=== PATIENT | female | born 1980 | race Caucasian/White ===

== ENCOUNTER → 2018-05-25 10:37 | Outpatient (REF) | payer BC, SELFPAY ==
[2018-05-25 19:41] LABS: HCT 35.5 % (36.0-46.0); HGB 12.1 g/dL (12.0-15.5); Mean Corp. HGB Concentration 34.1 g/dL (32.0-36.0); Mean Corpuscular Hemoglobin 33.5 pg (27.0-33.0); Mean Corpuscular Volume 98.3 fL (80-95); Mean Platelet Volume 10.7 fL (8.0-11.0); Platelet Count 161 x1000/uL (130-400); RBC 3.61 m/cumm (4.00-5.20); RBC Distribution Width 12.2 % (11.7-14.6); White Blood Cell Count 7.71 k/cumm (4.4-10.8)
[2018-05-25 19:48] LABS: Anion Gap 9.5 mmol/L (3-11); BUN 11 mg/dL (7-18); CO2 24.5 mmol/L (21.0-32.0); CREATININE 0.57 mg/dL (0.55-1.02); Calcium 7.9 mg/dL (8.5-10.1); Chloride 103 mmol/L (98-107); Glucose 88 mg/dL (70-100); Potassium 3.7 mmol/L (3.5-5.1); Sodium 137 mmol/L (136-145)
[2018-05-25 19:52] LABS: Iron 135 ug/dL (50-175)
[2018-05-25 20:39] LABS: Epithelial Cells Few HPF (Negative); Other Cells Few Renal (Negative); RBC Negative (0-2); WBC 0-2 HPF (0-5)
[2018-05-25 20:40] LABS: Bacteria Rare HPF (Negative); C & S Indicated? No; Casts Negative LPF (Negative); Crystals Negative HPF (Negative); Mucus Negative (Negative)
== END ==
LOC: NCHCN 10:37
PROVIDERS: PCP Nurse Practitioner Family; Visit Provider Physician Assistant Medical
DX: R06.02 Shortness of breath (principal); N39.0 Urinary tract infection, site not specified
CPT/HCPCS: 80048; 85027; 81015; 83540; 87086

== ENCOUNTER 2018-12-10 16:43 | Outpatient (REF) | payer BC, SELFPAY ==
[2018-12-10 19:41] LABS: Bilirubin Negative (Negative); Blood Negative (Negative); Clarity Clear; Glucose Negative (Negative); Ketones Negative (Negative); Leukocyte Esterase Negative (Negative); Nitrite Negative (Negative); Urobilinogen 0.2 EU/dL (Up TO 0.2); pH 6.5 (5-8)
== END 2018-12-10 17:03 ==
LOC: NCHCN 16:43
PROVIDERS: PCP Nurse Practitioner Family; Visit Provider Nurse Practitioner Family
DX: N89.8 Other specified noninflammatory disorders of vagina (principal); R30.0 Dysuria
CPT/HCPCS: 81003; 87480; 87510; 87660

== ENCOUNTER 2022-02-07 01:14 | Outpatient (CLI) | payer BC, SELFPAY ==
--- NOTE | 2022-02-07 | DI.RAD_ITS ---
Exam(s) XR SHOULDER LT COMPLETE 2+V EXAM: XR SHOULDER LT COMPLETE 2+V CLINICAL HISTORY: LT SHOULDER PAIN, M25.512. TECHNIQUE: 2D digital imaging was performed. COMPARISON: No exams were available for comparison FINDINGS: Five views There is no evidence of fracture or dislocation nor abnormal soft tissue calcifications. Subacromial space is not diminished but there is slight upward subluxation of the humeral head in the glenoid fo ssa. This may indicate an element of rotator cuff pathology despite absence of obvious degenerative change in the AC joint nor plain film impingement findings at the level of the acromion-lateral subac romial arch. Bone density is normal. There are no osseous lesions. IMPRESSION: As above. If clinically indicated follow-up MRI can be performed DATA REPOSITORY: RADIATION DOSE DELIVERED:
== END 2022-02-07 01:34 ==
PROVIDERS: PCP Nurse Practitioner Family; Visit Provider Naturopath
DX: M25.512 Pain in left shoulder (principal); S43.082A Other subluxation of left shoulder joint, initial encounter
CPT/HCPCS: 73030

== ENCOUNTER 2023-01-01 01:06 | Outpatient (CLI) | payer BC, SELFPAY ==
--- NOTE | 2023-01-01 | DI.RAD_ITS ---
Exam(s) XR CERVICAL SPINE COMP 4-5V EXAM: XR CERVICAL SPINE COMP 4-5V CLINICAL HISTORY: NECK PAIN WITH LT ARM RADICULOPATHY. TECHNIQUE: 2D digital imaging was performed. COMPARISON: No exams were available for comparison FINDINGS: BONES: No fracture or destructive lesion. Vertebral bodies are unremarkable. DISKS: Intervertebral disc spaces are maintained. No significant degenerative changes. ALIGNMENT: Cervical spinal alignment is within normal limits. The odontoid and atlantoaxial articulat ions are normal. SOFT TISSUE: Normal. The lung apices are clear. IMPRESSION: Unremarkable radiographs of the cervical spine. DATA REPOSITORY: RADIATION DOSE DELIVERED:
== END 2023-01-01 01:26 ==
PROVIDERS: PCP Nurse Practitioner Family; Visit Provider Naturopath
DX: M54.12 Radiculopathy, cervical region (principal); M54.2 Cervicalgia
CPT/HCPCS: 72050

== ENCOUNTER 2023-02-17 14:14 | Emergency (ER) | payer BC, SELFPAY ==
[2023-02-17 14:16] VITALS: BP 91/67; PULSE 67; RESP 15; TEMP 36.8; O2SAT 100
--- NOTE | 2023-02-17 14:32 | ED.GENADUL_ITS ---
Discharge Plan Disposition Patient Disposition: Home Condition: Improving Discharge Details Chief Complaint: Urinary Clinical Impression: Urinary retention Primary Care Provider: Katelyn Melton ED Provider: Luke Lemus Home Meds and New Rx's Prescriptions: No Action No Known Home Meds Discharge Instructions Instructions: Umaña Catheter Placement and Care (ED), Acute Urinary Retention in Women (ED) Additional Instructions: Please follow-up with your [facility] team or your primary care physician. If you have any issues please return to the emergency department for removal of your Umaña catheter. Medical Decision Making 42-year-old female 1 day postop from hysterectomy presents with urinary retent ion after taking out catheter this morning. Has not urinated since this AM. Has suprapubic fullness and pressure. High clinical suspicion for urinary retention. Lower suspicion for internal wound dehiscence/intra-abdominal/pelvic hemorrhaging. Will perform bladder scan. Will place Umaña catheter. Will reassess symptoms after Umaña catheter placement. Laparoscopy port sites clean dry intact no evidence of dehiscence. Patient is nonperitoneal afebrile nontoxic 3: 36 patient resting much more comfortably after Umaña catheter placed. Output of approximately 400 cc of urine. Patient to follow-up with primary care and [facility] team. If she has any issues she will return here for Umaña removal. HPI General Date/Time Provider Initiated Documentation: 02/17/23 14:21 . HPI Narrative: 42-year-old female 1 day postop hysterectomy, had urinary catheter in place, her [facility] team told her to remove her catheter at home this morning which she did she has not been able to urinate since this morning. Endorses lower abdominal distention pain Related Data Home Medications Medication Instructions Recorded Confirmed Unknown [No Known Home Meds] 02/17/23 02/17/23 Allergies Allergy/AdvReac Type Severity Reaction Status Date / Time No Known Allergies Allergy Unverified 02/17/23 14:21 General Stated Complaint: Urinary CHEKO: 4 Review of Systems Narrative: Review of Systems Constitutional: negative Eyes: negative ENT: negative Cardiovascular: negative Respiratory: negative Gastrointestinal: negative : Urinary retention Musculoskeletal: negative Skin: negative Neurologic: negative Psych: negative PFSH All Active Problems (Updated 02/17/23 @ 15:37 by Luke Lemus MD) Urinary retention (Acute) Social History Smoking/Tobacco Use Status: Never Smoking risk assessment performed?: Yes Alcohol Intake: never Drug use: Never Substance use type: does not use Exam Narrative Exam Narrative: Physical Examination General: alert, awake, cooperative, appears uncomfortable GI: Lower abdominal fullness without peritoneal signs, laparoscopy port sites clean dry intact no evidence of dehiscence Skin: Laparoscopy port sites clean dry intact no evidence of dehisced Course Vital Signs Vital signs: Vital Signs Temperature 36.8 C 02/17/23 14:16 Pulse 67 02/17/23 14:16 Respiratory Rate 15 02/17/23 14:16 Blood Pressure 91/67 L 02/17/23 14:16 Pulse Oximetry 100 02/17/23 14:16 Temperature 36.8 C 02/17/23 14:16 Temperature Source Temporal Artery Scan 02/17/23 14:16 Pulse 67 02/17/23 14:16 Respiratory Rate 15 02/17/23 14:16 Respiratory Effort Normal 02/17/23 14:20 Blood Pressure 91/67 L 02/17/23 14:16 Blood Pressure Position Sitting 02/17/23 14:16 Pulse Oximetry 100 02/17/23 14:16 Oxygen Delivery Method Room Air 02/17/23 14:16 Oxygen Flow Rate 0 02/17/23 14:16 Pain Level 10 02/17/23 14:16
[2023-02-17 15:54] VITALS: BP 113/68; PULSE 73; RESP 16; TEMP 36.6; O2SAT 100
== END 2023-02-17 15:56 | disposition home or self-care (01) ==
PROVIDERS: Emergency Provider Emergency Medicine; PCP Naturopath
DX: R33.9 Retention of urine, unspecified (principal); Z90.710 Acquired absence of both cervix and uterus
CPT/HCPCS: 51702; 99284

== ENCOUNTER 2023-02-19 08:30 | Emergency (ER) | payer BC, SELFPAY ==
[2023-02-19 08:34] VITALS: BP 108/75; PULSE 72; RESP 18; TEMP 37.3; O2SAT 100
--- NOTE | 2023-02-19 08:55 | W.ED.GENAD ---
Discharge Plan Disposition Patient Disposition: Home Condition: Stable Discharge Details Clinical Impression: Encounter for Ramos catheter removal Primary Care Provider: Katelyn Melton ED Provider: Morro Myrick Home Meds and New Rx's Prescriptions: No Action No Known Home Meds Discharge Instructions Additional Instructions: follow up with your obgyn provider as scheduled if you develop inability to urinate, severe abdominal pain or feel more ill return to the emergency department Medical Decision Making 42 yo female who underwent hysterectomy that was reportedly uncomplicated per patient this past Thursday in [facility], had a ramos during the procedure and was removed. She was d/c'd the same day but developed urinary retention so was seen in the [facility] ED on 02/17 and had ramos placed. She has had some discomfort since in the suprapubic region and mild bleeding around the ramos so came here. She denies fevers, chills, has been draining urine that is clear. She has clear urine in her ramos bag now. She is in no distress without significant tenderness. She requests ramos removal and voiding trial, nursing will remove ramos pt voided without issue and denies any dysuria with urination. She is stable for d/c, advised to f/u with obgyn and return precautions given Differential Diagnosis Differential Diagnosis: urinary retention, ramos discomfort HPI General Mode of arrival: ambulatory. Date/Time Provider Initiated Documentation: 02/19/23 08:39. Limitations to Documentation: no limitations. Information obtained by: patient. History of Present Illness 42 year old F presents to the emergency department with the chief complaint of requesting ramos removal, Patient started experiencing this day(s) (2) and it has been constant. No relieving factors improve symptom(s), No exacerbating factors reported . Patient notes denies chest pain, fever/chills and shortness of breath. Related Data Home Medications Medication Instructions Recorded Confirmed Unknown [No Known Home Meds] 02/17/23 02/19/23 Allergies Allergy/AdvReac Type Severity Reaction Status Date / Time No Known Allergies Allergy Unverified 02/19/23 09:07 General Stated Complaint: Urinary CHEKO: 3 Review of Systems All systems reviewed & are unremarkable except as noted in HPI and below Constitutional Constitutional: Denies chills, Denies fever(s) and Denies weakness Cardiovascular Cardiovascular: Denies chest pain and Denies dyspnea Respiratory Respiratory: Denies cough and Denies dyspnea Gastrointestinal Gastrointestinal: Denies abdominal pain, Denies nausea and Denies vomiting Musculoskeletal Musculoskeletal: Denies joint swelling Neurologic Neurologic: Denies weakness PFSH All Active Problems (Updated 02/19/23 @ 09:07 by Morro Myrick MD) Urinary retention (Acute) Encounter for Armos catheter removal (Acute) Social History Smoking/Tobacco Use Status: Never Smoking risk assessment performed?: Yes Alcohol Intake: never Drug use: Never Substance use type: does not use Do you feel safe at home: Yes Do you feel safe in your relationship?: Yes Exam Const General: no acute distress Orientation: alert HENMT Head: normal to inspection Ears: external ears normal General nose exam: external nose normal Mouth: moist mucous membranes Resp Effort & Inspection: normal respiratory effort and able to speak in complete sentences Cardio Rate: regular rate GI Palpation: soft and nontender Skin General skin exam: no rashes or lesions noted Neuro General: patient alert and patient oriented x3 Course Vital Signs Vital signs: Vital Signs Temperature 37.3 C 02/19/23 08:34 Pulse 72 02/19/23 08:34 Respiratory Rate 18 02/19/23 08:34 Blood Pressure 108/75 02/19/23 08:34 Pulse Oximetry 100 02/19/23 08:34 Temperature 37.3 C 02/19/23 08:34 Temperature Source Temporal Artery Scan 02/19/23 08:34 Pulse 72 02/19/23 08:34 Respiratory Rate 18 02/19/23 08:34 Blood Pressure 108/75 02/19/23 08:34 Blood Pressure Position Sitting 02/19/23 08:34 Pulse Oximetry 100 02/19/23 08:34 Oxygen Delivery Method Room Air 02/19/23 08:34 Oxygen Flow Rate 0 02/19/23 08:34
[2023-02-19 10:07] VITALS: PULSE 78; RESP 16; TEMP 37.2; O2SAT 99
== END 2023-02-19 10:10 | disposition home or self-care (01) ==
PROVIDERS: Emergency Provider Emergency Medicine; PCP Naturopath
DX: Z46.6 Encounter for fitting and adjustment of urinary device (principal)
CPT/HCPCS: 99282

== ENCOUNTER 2023-02-27 12:49 | Outpatient (REF) | payer BC, SELFPAY ==
[2023-02-27 13:46] LABS: Bilirubin Negative (Negative); Blood Negative (Negative); Clarity Clear (Clear); Glucose Negative (Negative); Ketones Negative (Negative); Leukocyte Esterase Negative (Negative); Nitrite Negative (Negative); Urobilinogen 0.2 mg/dL (Up to 0.2)
== END 2023-02-27 12:50 | disposition home or self-care (01) ==
LOC: LBN 12:49
PROVIDERS: PCP Naturopath; Visit Provider Nurse Practitioner Family
DX: N39.0 Urinary tract infection, site not specified (principal)
CPT/HCPCS: 81003

== ENCOUNTER 2024-06-03 16:54 | Outpatient (REF) | payer OTHER, SELFPAY ==
[2024-06-03 21:09] LABS: Abs Immature Grans 0.02 10^3/uL (0.0-0.06); Absolute Basophil Count 0.04 10^3/uL (0.0-0.2); Absolute Eosinophil Count 0.14 10^3/uL (0.0-0.7); Absolute Lymphocyte Count 1.99 10^3/uL (1.2-3.4); Absolute Monocyte Count 0.72 10^3/uL (0.1-0.8); Absolute Neutrophil Count 4.62 10^3/uL (1.2-6.7); Basophils % 0.5 %; Eosinophils % 1.9 %; HCT 40.5 % (36.0-46.0); HGB 13.6 g/dL (11.2-15.7); Immature Grans % 0.3 %; Lymphocytes % 26.4 %; MCH 31.9 pg (27.0-33.0); MCHC 33.6 % (32.0-36.0); MCV 95 fL (80-95); Monocytes % 9.6 %; Neutrophils % 61.3 %; Platelet Count 205 10^3/uL (130-400); RBC 4.26 10^6/uL (3.93-5.22); RDW 11.9 % (11.7-14.6); RDW-SD 41.1 fL; WBC 7.53 10^3/uL (4.4-10.8)
[2024-06-03 21:35] LABS: ALT 35 U/L (14-59); AST 25 U/L (15-37); Albumin 3.9 g/dL (3.4-5.0); Alkaline Phosphatase 59 U/L (46-116); Anion Gap 11.2 mmol/L (3-11); BUN 11 mg/dL (7-18); Bilirubin, Total 0.48 mg/dL (0.2-1.0); CO2 23.8 mmol/L (21.0-32.0); CREATININE 0.8 mg/dL (0.55-1.02); Chloride 105 mmol/L (98-107); Estimated GFR 94.28 (mL/min/1.73m2); Glucose 90 mg/dL (74-106); Lipase 45 U/L (16-77); Potassium 3.6 mmol/L (3.5-5.1); Sodium 140 mmol/L (136-145); Total Protein 6.9 g/dL (6.4-8.2)
[2024-06-03 21:38] LABS: Calcium 8.7 mg/dL (8.5-10.1)
[2024-06-06 11:21] LABS: Lyme Ab w Rflx to Lyme Confirm Negative (Negative)
[2024-06-07 23:33] LABS: Anaplasma phagocytophilum Negative (Negative); B. miyamotoi PCR Negative (Negative); Babesia divergens/MO-1 Negative (Negative); Babesia duncani Negative (Negative); Babesia microti Negative (Negative); Ehrlichia chaffeensis Negative (Negative); Ehrlichia ewingii/canis Negative (Negative); Ehrlichia muris eauclairensis Negative (Negative)
== END 2024-06-03 16:55 | disposition home or self-care (01) ==
LOC: LBN 16:54
PROVIDERS: PCP Naturopath; Visit Provider Nurse Practitioner Family
DX: R10.9 Unspecified abdominal pain (principal); R11.0 Nausea; R52 Pain, unspecified
CPT/HCPCS: 80053; 83690; 87798; 85025; 86618

== ENCOUNTER 2024-06-08 00:35 | Outpatient (CLI) | payer OTHER, SELFPAY ==
--- NOTE | 2024-06-08 | DI.MAMMO_ITS ---
Exam(s) MAMMO SCREENING EXAM: MAMMO SCREENING CLINICAL HISTORY: SCREENING,BASELINE TECHNIQUE: Bilateral full field digital CC and MLO mammographic images were obtained with 3D tomosyn thesis and utilizing computer aided detection (CAD). COMPARISON: This is a baseline examination. FINDINGS: Masses/Architectural Distortion: None seen. Microcalcifications: No suspicious pleomorphic-type are seen. Skin Thickening/Nipple Retraction: None. IMPRESSION: 1. No evidence for malignancy at this time. 2. Unless there is more urgent need, screening mammography is recommended, as per [employer] guidelines. BI-RADS Category 1 - Negative Breast Density - Category C - Heterogeneously dense Breast density category C or D implies that the patient has dense breast tissue. Dense breast tissue is very common and is not abnormal but dense breast tissue can make it harder to find cancer on a ma mmogram. Also, dense breast tissue may increase their breast cancer risk. This information about the result of the mammogram report was provided to the patient to raise their awareness. Use this report when you speak with the patient about their risks for breast cancer, which includes their family hist ory. At that time, you may recommend for more screening tests (Ultrasound or MRI) as they might be us eful based on their risk. A negative radiographic report should not delay biopsy if a dominant or clinically suspicious mass is present. Up to ten percent of cancers are not identified on mammography. A negative report may reinforce clinical impression. Adenosis and dense breasts may obscure an underlying neoplasm. False positive reports average 6 to 10%. Patient will receive a letter notifying them of these results.
== END 2024-06-08 00:55 ==
PROVIDERS: PCP Naturopath; Visit Provider Naturopath
DX: Z12.31 Encounter for screening mammogram for malignant neoplasm of breast (principal)
CPT/HCPCS: 77063; 77067

== ENCOUNTER 2025-02-06 15:36 | Outpatient (CLI) | payer OTHER, SELFPAY ==
--- NOTE | 2025-02-06 14:00 | DI.RAD_ITS ---
Exam(s) XR SHOULDER LT COMPLETE 2+V EXAM: XR SHOULDER LT COMPLETE 2+V CLINICAL HISTORY: eval L shoulder, thoracic outlet. TECHNIQUE: 2D digital imaging was performed. Three views. COMPARISON: MR MRI, UPPER EXT, JOINT S/ CONTRA from 02/22/2022 FINDINGS: BONES: No acute fracture is present. No bony destructive lesion is seen. No C7 rib. JOINTS: No dislocation present. No significant degenerative changes. SOFT TISSUE: Normal. IMPRESSION: Unremarkable radiographs of the left shoulder. DATA REPOSITORY: RADIATION DOSE DELIVERED:
== END 2025-02-06 15:37 | disposition home or self-care (01) ==
LOC: DIORS 15:36
PROVIDERS: PCP Naturopath; Referring Provider Naturopath; Visit Provider Student in an Organized Health Care Education/Training Program
DX: G54.0 Brachial plexus disorders (principal)
CPT/HCPCS: 73030